=== PATIENT | female | born 1995 | race Caucasian/White ===

== ENCOUNTER 2018-07-11 16:13 | Emergency (ER) | payer MEDICAID | END 2018-07-11 18:18 | disposition home or self-care (01) | LOC: FTE 18:18 | DX: R09.89 Other specified symptoms and signs involving the circulatory and respiratory systems (principal) | CPT/HCPCS: 99283 ==

== ENCOUNTER 2018-08-29 19:24 | Outpatient (CLI) | payer MEDICAID | END 2018-08-29 21:15 | disposition home or self-care (01) | LOC: OBT 19:24 → L-D 19:24 → OBT 21:15 | DX: O36.8130 Decreased fetal movements, third trimester, not applicable or unspecified (principal); Z3A.35 35 weeks gestation of pregnancy | CPT/HCPCS: 76818 ==

== ENCOUNTER 2018-09-25 16:08 | Inpatient (IN) | payer MEDICAID ==
[2018-09-25] MEDS ORDERED: METHYLERGONOVINE 0.2 MG INJ IM (17:00)
[2018-09-25] MEDS ORDERED: LIDOCAINE 1% (MPF) 30 ML INJ INJ (17:00)
[2018-09-25] MEDS ORDERED: OXYTOCIN 30 UNITS/LR 500 ML IV ×2 (17:00)
[2018-09-25] MEDS ORDERED: MISOPROSTOL 200 MCG TAB PR (17:00)
[2018-09-25] MEDS ORDERED: CARBOPROST 250 MCG INJ IM (17:00)
[2018-09-25 17:22] LABS: ADD MAN DIFF? NO
[2018-09-25 17:25] LABS: WHITE BLOOD COUNT 6.6 10^3/ul (4.8-10.8)
[2018-09-25 17:25] LABS: BASOPHILS % 0.3 % (0.0-2.0); EOSINOPHILS # 0.1 10^3/ul (0.0-0.5); EOSINOPHILS % 0.9 % (0.0-7.0); HEMATOCRIT 34.7 % (37.0-47.0); HEMOGLOBIN 11.9 g/dl (12.0-16.0); LYMPHOCYTES # 1.3 10^3/ul (0.8-2.9); LYMPHOCYTES % 19.8 % (15.0-51.0); MEAN CORPUSCULAR HEMOGLOBIN 29.7 pg (29.0-33.0); MEAN CORPUSCULAR HGB CONC 34.3 g/dl (32.0-37.0); MEAN CORPUSCULAR VOLUME 86.5 fl (82.0-101.0); MEAN PLATELET VOLUME 10.3 fl (7.4-10.4); MONOCYTE # 0.4 10^3/ul (0.3-0.9); NEUTROPHIL # 4.8 10^3/ul (1.6-7.5); NEUTROPHILS % 72.5 % (39.0-77.0); PLATELET COUNT 254 10^3/UL (140-415); RED BLOOD COUNT 4.01 10^6/ul (4.20-5.40); RED CELL DISTRIBUTION WIDTH 13.9 % (11.5-14.5)
[2018-09-25] MEDS: LACTATED RINGER'S 1,000 ML IV ×3 (17:33→22:48)
[2018-09-25 17:40] LABS: INR 0.88; PT RATIO 0.9
[2018-09-25 17:41] LABS: PARTIAL THROMBOPLASTIN TIME 25.8 Sec (23.0-35.0)
[2018-09-25 18:14] LABS: HEPATITIS B SURFACE ANTIGEN NEGATIVE (NEGATIVE)
[2018-09-25] MEDS: BUTORPHANOL 2 MG INJ IV (19:59)
[2018-09-25] MEDS ORDERED: ONDANSETRON 4 MG INJ IV (20:00)
[2018-09-25] MEDS ORDERED: KETOROLAC 30 MG INJ IV (20:00)
[2018-09-25] MEDS ORDERED: DIPHENHYDRAMINE 50 MG INJ IV (20:00)
[2018-09-25] MEDS ORDERED: ZOLPIDEM 5 MG TAB PO (20:00)
[2018-09-25] MEDS ORDERED: FENTAnyl 2MCG/ML-ROPIV 0.2% 100 ML BAG EPI (20:00)
[2018-09-25] MEDS ORDERED: HYDROmorphONE 0.5 MG/0.5 ML SYG IV ×2 (20:00)
[2018-09-25] MEDS ORDERED: NALOXONE (0.4 MG/ML) INJ IV (20:00)
[2018-09-26] MEDS: OXYTOCIN 30 UNITS/LR 500 ML IV ×3 (02:51→09:36)
[2018-09-26] MEDS: LACTATED RINGER'S 1,000 ML IV (04:43)
[2018-09-26] MEDS: LACTATED RINGER'S 1,000 ML IV* ×2 (05:28→15:25)
[2018-09-26] MEDS ORDERED: OXYTOCIN 30 UNITS/LR 500 ML IV (05:30)
[2018-09-26] MEDS ORDERED: METHYLERGONOVINE 0.2 MG INJ IM (05:30)
[2018-09-26] MEDS ORDERED: CARBOPROST 250 MCG INJ IM (05:30)
[2018-09-26] MEDS ORDERED: MISOPROSTOL 200 MCG TAB PR (05:30)
[2018-09-26] MEDS: IBUPROFEN 600 MG TAB PO ×4 (05:58→23:37)
[2018-09-26] MEDS: HYDROCODONE/APAP (5/325) TAB PO ×2 (06:56→15:24)
[2018-09-26] MEDS: LANOLIN HPA 1 PKT TOP (09:33)
[2018-09-26] MEDS: BENZOCAINE 20% 56 ML SPRAY TOP (09:34)
[2018-09-26 16:01] LABS: RAPID PLASMA REAGIN NONREACTIVE (NR)
[2018-09-27] MEDS: IBUPROFEN 600 MG TAB PO ×4 (05:28→23:25)
[2018-09-27] MEDS: HYDROCODONE/APAP (5/325) TAB PO ×3 (06:22→21:59)
[2018-09-27 08:56] LABS: ADD MAN DIFF? NO
[2018-09-27 08:58] LABS: BASOPHILS % 0.5 % (0.0-2.0); EOSINOPHILS # 0.3 10^3/ul (0.0-0.5); EOSINOPHILS % 3.2 % (0.0-7.0); HEMATOCRIT 32.5 % (37.0-47.0); HEMOGLOBIN 11.1 g/dl (12.0-16.0); LYMPHOCYTES # 2.2 10^3/ul (0.8-2.9); MEAN CORPUSCULAR HEMOGLOBIN 30.2 pg (29.0-33.0); MEAN CORPUSCULAR HGB CONC 34.2 g/dl (32.0-37.0); MEAN CORPUSCULAR VOLUME 88.6 fl (82.0-101.0); MEAN PLATELET VOLUME 10.4 fl (7.4-10.4); MONOCYTE # 0.5 10^3/ul (0.3-0.9); MONOCYTES % 6.1 % (0.0-11.0); NEUTROPHIL # 4.7 10^3/ul (1.6-7.5); NEUTROPHILS % 61.4 % (39.0-77.0); PLATELET COUNT 227 10^3/UL (140-415); RED BLOOD COUNT 3.67 10^6/ul (4.20-5.40); RED CELL DISTRIBUTION WIDTH 14.2 % (11.5-14.5)
[2018-09-27 08:58] LABS: WHITE BLOOD COUNT 7.7 10^3/ul (4.8-10.8)
[2018-09-28] MEDS: HYDROCODONE/APAP (5/325) TAB PO ×4 (01:51→13:18)
[2018-09-28] MEDS: BISACODYL 10 MG SUPP PR (01:52)
[2018-09-28] MEDS: IBUPROFEN 600 MG TAB PO ×2 (06:29→11:33)
[2018-09-28] MEDS: MAGNESIUM HYDROXIDE 30ML CUP PO (09:01)
[2018-09-28] MEDS: DIPHTH/TET/ACEL PERTUSS (ADULT) 0.5 ML VIAL IM* (09:02)
== END 2018-09-28 14:48 | disposition home or self-care (01) | DRG 807 ==
LOC: OBT 16:08 → PP1 09-26 08:30 → L-D 16:09 → OBT 16:25 → L-D 16:25
PROVIDERS: Obstetrics & Gynecology
PROC: 10E0XZZ Delivery of Products of Conception, External Approach (ICD-10-PCS; principal; 2018-09-26)
PROC: 0HQ9XZZ Repair Perineum Skin, External Approach (ICD-10-PCS; 2018-09-26)
DX: O70.0 First degree perineal laceration during delivery (principal); Z37.0 Single live birth; Z3A.39 39 weeks gestation of pregnancy
CPT/HCPCS: 76815; 85025; 85610; 85730; 86592; 86850; 86900; 86901; 87340; 90715